=== PATIENT | male | born 1940 ===

== ENCOUNTER → 2024-04-04 13:30 | Outpatient (REF) | payer MEDICARE, OTHER, SELFPAY | LOC: RAD 13:30 | PROVIDERS: ATTENDING PHYSICIAN Internal Medicine Cardiovascular Disease; FAMILY PHYSICIAN Family Medicine | DX: I65.23 Occlusion and stenosis of bilateral carotid arteries (principal) | CPT/HCPCS: 93880 ==

== ENCOUNTER 2024-09-26 14:46 | Inpatient (IN) | payer MEDICARE, OTHER, SELFPAY ==
[2024-09-26] VITALS (15 sets, daily range): BP systolic 123–190; BP diastolic 59–97; PULSE 77; BMI 30.8; BMI 27.6
--- NOTE | 2024-09-26 06:52 | ED.GENMED ---
History of Present Illness
General
Chief Complaint: Fall
Source: patient and ambulance crew
Exam Limitations: none
Time Seen by Provider: 09/26/24 06:43
Nursing documentation reviewed up to this point in time: agreed with
History of Present Illness
History of Present Illness:
84-year-old male with a past medical history of hypertension, hyperlipidemia, diabetes who presents to the emergency room from home where he lives with his and son; presents via EMS for evaluation after fall, also complaining of feeling
'unwell.' Patient reports that he started feeling 'not good' yesterday. He says that he has been having increased urinary frequency, has been feeling very weak and tired. He says that he has had some nausea. He says he is having some mild
abdominal pains. He says that last night he had a low-grade fever. He says that he slept in his lounge chair last night and this morning when he was trying to get up to go to the bathroom he was too weak to stand that he fell out of the lounge
chair. He is not sure whether he hit his head (does have a minor abrasion to the forehead). Denies loss of consciousness. He says his son called EMS to bring her to the hospital. He denies any serious injuries from the fall�denies headache, neck
pain; he does have chronic back pain he says no worse than usual since the fall. Denies any pain in his extremities. Denies being on blood thinners. Of note patient says that he has been on antibiotics for outpatient treatment of left lower
extremity cellulitis�he says he started antibiotics in August, initial course was not effective and so he started on another course recently. He cannot recall the names of the antibiotics.
Review of Systems
Review of Systems
All Other Systems: ROS reviewed and negative except as documented in HPI and ROS
Constitutional: Reports fever, fatigue and chills
EENT: Denies sore throat or runny nose
Respiratory: Denies cough or trouble breathing
Cardiac: Denies chest pain or palpitations
ABD/GI: Reports abdominal pain, nausea and vomiting; Denies diarrhea
: Reports frequency; Denies dysuria or flank pain
Musculoskeletal: Reports back pain (Chronic unchanged); Denies neck pain
Skin: Reports other (Redness left lower leg)
Neurological: Denies dizzy or headache
Phy Exam
Physical Exam
Physical Exam:
General: Awake, alert, oriented x3; no acute distress
Head: Normocephalic, minor abrasion to the forehead
Eyes: Conjunctiva normal, EOMI, pupils equal round and reactive to light bilaterally
Throat: Airway intact, slightly dry mucous membranes
Neck: Trachea midline, no cervical spine tenderness
Back: No signs of trauma to the back or flank, no tenderness in the thoracic or lumbar spine
Lungs: Clear to auscultation bilaterally, no wheezing, rales, rhonchi
Heart: Regular rate and rhythm, systolic murmur
Abd: Soft, non distended, mild lower abdominal tenderness, no peritoneal signs, no masses
Neuro: No gross deficits
Skin: Venous stasis changes in the lower extremities, erythema anterior left lower leg, very minor superficial wound anterior shepherd
Extremities: Trace edema with venous stasis changes and skin changes as above; atraumatic, no tenderness, moves all extremities through comfortable range of motion without pain
Scores
Heart Failure Risk
Heart Failure Risk Score: Not Applicable
Heart Score for Chest Pain Patients
STEMI patient?: Not applicable
Withdrawal Assessment of Alcohol
Withdrawal Assessment Completed?: Not applicable
Course
Orders/Labs/Results
Orders:
Orders
09/26/24 06:51
Electrocardiogram (*1) Urgent
Reason for Study: Fatigue / Weakness
CT Cervical Spine W/o Iv Contr Urgent
Comment:
Reason For Exam: unwitnessed fall, frontal abrasion, N/V
CT Head W/o Iv Contrast Urgent
Comment:
Reason For Exam: unwitnessed fall, frontal abrasion, N/V
EKG- Treatment ONCE
CR Chest - 2 Views Urgent
Comment:
Reason For Exam: weakness, eval for pna
09/26/24 06:54
CT Abd/pelvis W Iv Cont Urgent
Comment:
Reason For Exam: abd pain, N/V, fever
COVID-19 Antigen Urgent
Source: Nasal Swab
CPK [Creatine Phosphokinase] Urgent
Complete Blood Count/With Diff Urgent
Comprehensive Metabolic Panel Urgent
Lipase Urgent
Influenza A+B Rapid Molecular Urgent
JEZ Source: Nasal Swab
Specimen Description:
09/26/24 09:35
Pantoprazole [Protonix IV] 40 mg IV NOW STA
09/26/24 09:52
Pt Eval And Treat Urgent
Activity Level: Ambulate
09/26/24 09:53
0.9% Sodium Chloride 1000 ml [Nss] 1,000 ml IV BOLUS
09/26/24 10:18
Urinalysis Reflex To Culture Urgent
Date Specimen was Collected: 09/26/24
Time Specimen was Collected: 10:17
Urine Microscopic Reflex Cult Urgent
Abnormal Lab Results
09/26/24 09/26/24 09/26/24
06:54 06:55 10:18
Hct 38.6 L %
(39.0-52.0)
Absolute Neuts (auto) 6.6 H 10^3/uL
(1.4-6.5)
Absolute Lymphs (auto) 0.2 L 10^3/uL
(1.2-3.4)
Immature Gran % 0.6 H %
(0-0.5)
Neutrophils % 93.1 H %
(42.2-75.2)
Lymphocytes % 3.3 L %
(20.5-51.1)
Carbon Dioxide 20 L mmol/L
(22-30)
Glucose 269 H mg/dl
(70-99)
Total Bilirubin 1.7 H mg/dl
(0.2-1.3)
Lipase 22 L U/L
(23-300)
Urine Ketones 1+ A
(Negative)
Ur Occult Blood Reflex 2+ A
(Negative)
Urine Glucose 3+ A
(Negative)
POC Glucose 248 H mg/dl
(70-99)
09/26/24 06:54
09/26/24 06:54
Vital Signs
Initial and Last Documented VS:
Initial Vital Signs
Pulse Resp BP Pulse Ox
75 16 158/87 94
09/26/24 06:44 09/26/24 06:44 09/26/24 06:44 09/26/24 06:44
Last Documented Vital Signs
Temp Pulse Resp BP Pulse Ox
37.1 C 70 18 170/72 96
09/26/24 09:56 09/26/24 09:45 09/26/24 09:45 09/26/24 10:00 09/26/24 09:45
MDM/Problems Addressed
Differential Diagnosis Includes:
Malaise/vomiting/abdominal pain: DKA, UTI, diverticulitis/other intra-abdominal infection, gastritis, medication reaction, viral syndrome
MDM/Problems Addressed:
84-year-old male presents to the emergency room for evaluation after fall is also been feeling unwell since yesterday; symptoms occurring in the setting of recent treatment for cellulitis as an outpatient. Hypertensive but otherwise normal vitals.
Physical exam as above. Will place an IV send labs including a CBC and a CMP, lipase; check urinalysis. Check swabs for COVID and flu. Check an EKG. Will check CT head and cervical spine after fall with apparent head strike. Will check CT
abdomen pelvis. Check chest x-ray. Will provide some fluids and antiemetic. Will monitor and reassess after the above.
Labs reviewed: CBC and CMP significant for hyperglycemia 269 otherwise unremarkable. COVID and flu negative. CT head and cervical spine shows right frontal hematoma but no acute intracranial pathology and no cervical spine injury. Chest x-ray
shows no acute pathology. CT abdomen pelvis negative for any acute pathology. Urinalysis is pending. My suspicion is that cellulitis has been driving up blood sugars resulting in increased urinary frequency and dehydration. Infection itself
likely also contributing to his weakness. Suspect antibiotics is causing worsening GI upset�family is at bedside now and confirmed that he had been on Augmentin for a week and then a few days ago started Bactrim because cellulitis had improved but
not resolved. Spoke to the patient and family offered admission for treatment with antibiotics in the hospital for his cellulitis given continued redness despite long course of outpatient antibiotics�patient is somewhat hesitant to be admitted but
family is very concerned about cellulitis and his functional status�he has not been able to even stand without significant assistance according to his . Will provide some additional fluids and have PT evaluate and reassess disposition.
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 His is very concerned about his current degree of weakness and functional
status. Think this is multifactorial likely related to infection with acute cellulitis, dehydration secondary to hyperglycemia. Will plan to admit for IV antibiotics given continued cellulitis and worsening weakness despite prolonged course of
outpatient antibiotics. Case discussed with hospitalist.
Chronic conditions affecting care:
Diabetes
Acute Exacerbation and/or Progression of Chronic Illness:
Acutely hypertensive with no signs or symptoms of hypertensive emergency no indication for emergent antihypertensive treatment
Acute Exacerbation and/or Progression of Chronic Illness: HTN
*Radiology
Radiology exam reviewed: radiology read reviewed
*Pulse Oximetry
Patient hypoxic: no
*Critical Care Note
Total Time (30-74mins, 75-104mins- exclusive of procedures): Not Applicable
Data Reviewed
Review of Other/Old Records Reveals: Labs and Records
Source: patient, records and ambulance crew
Patient Management
Social determinants of health affecting care: Living situation
Discussion with other providers: Hospitalist (Discussed with hospitalist) and Other (Discussed with physical therapist)
Escalation/DeEscalation of care consider admission/obs:
Admission indicated
ED Attending Note
-
Portions of this chart may have been created with voice recognition software.� Occasional wrong word or��sound alike� substitutions may have occurred due to the inherent limitations of voice recognition software.
Discharge Plan
Departure
Patient Disposition: Admit
Date of Disposition: 09/26/24
Time of Disposition: 11:05
Admit to doctor: Alex
Presentation/result/management discussed w/ accepting MD/DO: Hospitalist
Discharge Problem:
Cellulitis, Weakness, Hyperglycemia, Acute dehydration
Prescriptions:
No Action
atorvastatin 20 mg Tablet
20 mg PO DAILY
glipizide 10 mg Tablet
10 mg PO DAILY
omeprazole 40 mg Capsule,Delayed Release(Dr/Ec)
40 mg PO DAILY
metformin 1,000 mg Tablet
1,000 mg PO BID
lisinopril-hydrochlorothiazide 10-12.5 mg Tablet
1 tab PO DAILY
Extra Strength Sinus Relief
1 spray inhalation .DAILY-BID
Nadeau Q Plus Maxiumum
1 cap PO DAILY
Probiotic
1 cap PO DAILY
Tums
2 tab PO PRN PRN (Reason: GAS)
Vitamin C 1,000 MG
1,000 mg PO PRN PRN (Reason: vitamin)
Referrals:
UNKNOWN - PT DOES,NOT KNOW [Family Provider] -
Interventions
Interventions:
*Risk Screen - Suicide Last Done: 09/26/24 06:44
*General Assessment Last Done: 09/26/24 06:44
*Neglect/Abuse Screening Last Done: 09/26/24 06:44
ED- Fall Risk Assessment Last Done: 09/26/24 06:49
*ED COVID-19 Vaccine History Last Done: 09/26/24 06:44
ED-Musculoskeletal Assessment Last Done: 09/26/24 08:10
ED- Neurological Assessment Last Done: 09/26/24 08:10
Discharge Date and Time
Print Language: KYRGYZ
[2024-09-26 06:57] LABS: Glucose - Point of Care 248 mg/dl (70-99)
[2024-09-26 07:06] LABS: % Basophils 1.1 % (0-2); % Eosinophils 0.1 % (0-6); % Immature Granulocytes 0.6 % (0-0.5); % Lymphocytes 3.3 % (20.5-51.1); % Monocytes 1.8 % (1.7-9.3); % Neutrophils 93.1 % (42.2-75.2); Absolute Basophils 0.1 10^3/uL (0-0.2); Absolute Lymphocytes 0.2 10^3/uL (1.2-3.4); Absolute Monocytes 0.1 10^3/uL (0.1-0.6); Absolute Neutrophils 6.6 10^3/uL (1.4-6.5); Hematocrit 38.6 % (39.0-52.0); Hemoglobin 13.6 g/dL (13.0-18.0); Mean Corp Hgb Conc. 35.2 g/dL (33.0-37.0); Mean Corpuscular Hgb 28.8 pg (27.0-31.0); Mean Corpuscular Volume 81.6 fL (80.0-94.0); Mean Platelet Volume 9.8 fL (7.4-10.4); Nucleated Red Blood Cells % 0 % (-); Platelet Count 204 10^3/uL (130-400); Red Blood Cell Count 4.73 10^6/uL (4.70-6.10); Red Cell Dist. Width 12.5 % (11.5-14.5)
[2024-09-26 07:26] LABS: ALT (SGPT) 22 U/L (0-50); AST (SGOT) 33 U/L (17-59); Albumin 4.2 g/dl (3.5-5.0); Alkaline Phosphatase 112 U/L (38-126); Blood Urea Nitrogen 17 mg/dl (9-20); Calcium 9.5 mg/dl (8.4-10.2); Carbon Dioxide 20 mmol/L (22-30); Chloride 99 mmol/L (98-107); Creatine Phosphokinase 137 U/L (55-170); Estimated Creatinine Clearance 90 ml/min; Glucose 269 mg/dl (70-99); Lipase 22 U/L (23-300); Sodium 136 mmol/L (135-145); Total Bilirubin 1.7 mg/dl (0.2-1.3); Total Protein 7.1 g/dl (6.3-8.2); eGFR > 60.00
[2024-09-26 07:42] LABS: COVID-19 Antigen Negative (Negative)
[2024-09-26] MEDS: PROTONIX IV 40 MG IV (10:10)
[2024-09-26] MEDS: NSS 1000 IV ×2 (10:10→16:27)
[2024-09-26 10:32] LABS: Urine Albumin Trace (Neg - Trace); Urine Bilirubin Negative (Negative); Urine Character Clear (Clear); Urine Color Straw; Urine Glucose 3+ (Negative); Urine Ketone 1+ (Negative); Urine Leukocyte Negative (Negative); Urine Nitrite Negative (Negative); Urine Occult Blood 2+ (Negative); Urine Specific Gravity 1.005 (<1.030); Urine Urobilinogen Negative (Neg - 1+)
[2024-09-26 11:03] LABS: Urine Bacteria Few (Negative)
[2024-09-26 11:04] LABS: Urine Red Blood Cell 0-2 /HPF (0-2); Urine White Cell 0-2 /HPF (0-5)
--- NOTE | 2024-09-26 11:27 | HPS.HSE ---
Family Physician
-
Family Physician: NOT KNOW UNKNOWN - PT DOES
Chief Complaint
-
General Malaise
History of Present Illness
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 Patient had slept in his lounge chair night prior
then had a fall when he tried to get up in the morning. Denied Loss of Consciousness. Prior to fall, for the past week or so patient has been on oral abx to treat left Lower ext cellulitis. Patient notes some improvement in erythema since onset
though not resolved. ED eval significant for fever 103 with tachypnea suggestive possible sepsis. Blood pressure stable. No significant Lactic acidosis of leukocytosis noted. Mild hyperglycemia noted 200s in labwork. Patient also noted
intermittent abd pain nausea treated with Zofran in ED. Reports history chronic constipation alternating with diarrhea.
Medical History
Past Medical History
Past Medical History: Reports Other (as above)
Past Surgical History: Reports Other (as above)
Social History
Tobacco: Non-smoker
Alcohol: None
Drug: None
Personal:
Living: With Family
Family History
Family History: Not pertinent (reviewed)
Allergies / Home Medications
Allergies reflects when Allergies were last updated in Back[facility].
Home Medications with original date entered in BackTrack
Allergy/Medication List:
Allergies
Allergy/AdvReac Type Severity Reaction Status Date / Time
No Known Allergies Allergy Verified 09/26/24 06:49
Home Medications
atorvastatin 20 mg tablet 20 mg PO DAILY 06/16/23
glipizide 10 mg tablet 10 mg PO DAILY 06/16/23
metformin 1,000 mg tablet 1,000 mg PO BID 06/16/23
omeprazole 40 mg capsule,delayed release 40 mg PO DAILY 06/16/23
amlodipine 2.5 mg tablet (Norvasc) 2.5 mg PO DAILY 09/26/24
amoxicillin 875 mg-potassium clavulanate 125 mg tablet 1 tab PO BID 09/26/24
calcium carbonate (Tums) 600 mg PO TIDPRN PRN gerd 09/26/24
ibuprofen 200 mg tablet (Advil) 200 mg PO BIDPRN PRN mild pain 09/26/24
lisinopril 20 mg tablet 20 mg PO DAILY 09/26/24
olive leaf extract 250 mg capsule 250 mg PO DAILY 09/26/24
omega-3 fatty acids 1,000 mg PO DAILY 09/26/24
sulfamethoxazole 800 mg-trimethoprim 160 mg tablet (Bactrim DS) 1 tab PO BID 09/26/24
Review of Systems
-
A 12 point ROS was completed and negative except as noted: Yes
Constitutional: Reports Other (as below)
Physical Exam
Vital Signs
Vital Signs
Temp Pulse Resp BP Pulse Ox
98.8 F 70 18 170/72 96
09/26/24 09:56 09/26/24 09:45 09/26/24 09:45 09/26/24 10:00 09/26/24 09:45
Physical Exam
General: Other (as below)
Laboratory Results
-
09/26/24 06:54
09/26/24 06:54
Laboratory Results
Total Bilirubin 1.7 mg/dl (0.2-1.3) H 09/26/24 06:54
AST 33 U/L (17-59) 09/26/24 06:54
ALT 22 U/L (0-50) 09/26/24 06:54
Alkaline Phosphatase 112 U/L (38-126) 09/26/24 06:54
Lipase 22 U/L (23-300) L 09/26/24 06:54
Impression/Plan
-
ROS
General: reports fever general malaise/weakness
Neuro: Denies seizure shaking loss of consciousness dizziness vertigo
Psych: denies depression hallucinations confusion manic episodes
Endocrine: reports polyuria polydipsia denies heat/cold intolerance
HEENT: Denies blindness visual disturbances epistaxis
Pulmonary: denies coughing hemoptysis sneezing sob dyspnea on exertion
Cardiovascular: denies chest pain palpitations leg swelling
Hematology: denies signs symptoms of anemia easy bruising/bleeding
Gastrointestinal: denies nausea vomiting diarrhea constipation hematemesis hematochezia melena
Genito-Urinary: denies retention incontinence dysuria
Musculoskeletal: reports chronic back pain
Dermatology: reports lower ext erythema Lt>Rt
Physical Exam
General: No pallor, cyanosis, or jaundice. Obesity
HEENT: Throat clear. PERRLA Normocephalic atraumatic Hard of Hearing
NECK: Supple. No JVD Carotid Bruits
RESPIRATORY: Lungs clear to auscultation. No crackles wheezes stridor
CVS: S1, S2 normal. RRR. No murmur, rub or gallop.
ABDOMEN: Soft, non-tender. seems distended vs obesity habitus. BS present. Reducible hernia
EXTREMITIES: Lower ext erythema Left>right
POLITICAL ANALYST: AOx3
IMPRESSION:
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 Patient had slept in his
lounge chair night prior then had a fall when he tried to get up in the morning. Denied Loss of Consciousness. Prior to fall, for the past week or so patient has been on oral abx to treat left Lower ext cellulitis. Patient notes some improvement
in erythema since onset though not resolved. ED eval significant for fever 103 with tachypnea suggestive possible sepsis. Blood pressure stable. No significant Lactic acidosis of leukocytosis noted. Mild hyperglycemia noted 200s in labwork.
Patient also noted intermittent abd pain nausea treated with Zofran in ED. Reports history chronic constipation alternating with diarrhea.
PLAN:
Left Lower Ext Cellulitis failed outpt treatment
Possible Sepsis Fever and tachypnea, no lactic acidosis, hypotension, or leukocytosis
-Tele admit
-COVID/Flu negative
-CXR appreciated no acute abn's
-Cont empiric Cefazolin
-follow up blood cultures
-ID eval requested
-Tylenol prn fever
Fall/physical deconditioning d/t acute illness as above
PT/OT appreciated SNF vs Home PT
maintain fall precautions
CT Head appreciated no acute intracranial abn's, small right frontal scalp hematoma noted.
Cervical CT appreciated no acute abn's, multilevel degenerative disc disease noted.
HTN HLD
-cont home amlodipine Lisinopril with holding parameters
-cont statin
Intermittent Abd Pain Nausea
Possibly d/t constipation
-monitor bowel movements
-prn zofran
-laxatives as needed for now, will consider scheduled depending on clinical progress
-CT abd/pelvis appreciate no acute abn's, hepatomegaly and fatty infiltration, small hiatal hernia, small umbilical hernia
Uncontrolled DM polydipsia polyuria possibly exacerbated by underlying infection
-received IVF bolus in ED, cont IVF maintenance pending improvement in oral intake
-hold home Glipizide
-cont home Metformin
-low dose sliding scale
-Updated A1c appreciated 7.9
-Carb controlled Diet
GERD
-cont PPI
Chronic Back Pain
-cont home prn Ibuprofen
-PT/OT
DVT ppx Lovenox
Full Code as per pt
I spent a total of 75 minutes with the patient or on the floor. More than 50% of this time involved counseling and coordination of care.
[2024-09-26] MEDS: ANCEF 10 IV ×2 (11:33→19:55)
[2024-09-26] MEDS: TYLENOL 1000 MG PO (11:51)
[2024-09-26] MEDS: ZOFRAN 4 MG IV (11:51)
[2024-09-26 13:57] LABS: Glycohemoglobin (HgbA1c) 7.9 % (4.0-5.6)
[2024-09-26 13:58] LABS: Lactic Acid 1.5 mmol/L (0.7-2.0)
[2024-09-26 15:42] LABS: B-Hydroxybutyrate 0.75 mmol/L (0.02-0.27)
[2024-09-26 16:31] LABS: Glucose - Point of Care 207 mg/dl (70-99)
[2024-09-26] MEDS: NORVASC 2.5 MG PO (16:59)
[2024-09-26] MEDS: NOVOLOG FLEXPEN-LOW RESISTANCE 2 UNITS SC (17:01)
[2024-09-26] MEDS: GLUCOPHAGE 1000 MG PO (17:03)
[2024-09-26] MEDS: LOVENOX 40 MG SC (17:05)
[2024-09-26] MEDS: TYLENOL 650 MG PO (19:55)
[2024-09-26 21:14] LABS: Glucose - Point of Care 214 mg/dl (70-99)
[2024-09-27] VITALS (7 sets, daily range): BP systolic 120–157; BP diastolic 68–90; PULSE 64; O2SAT 95
[2024-09-27] MEDS: NSS 1000 IV ×2 (02:05→11:37)
[2024-09-27] MEDS: ANCEF 10 IV ×2 (03:39→12:16)
[2024-09-27 07:59] LABS: Glucose - Point of Care 155 mg/dl (70-99)
--- NOTE | 2024-09-27 08:18 | W.PN.HOSP.TC ---
Today's Communication/Plan
-
abx as per ID
PT/OT
glycemic control
Glipizide resumed
Assessment / Plan
Assessment / Plan
Physical Exam
General: No pallor, cyanosis, or jaundice. Obesity
HEENT: Throat clear. PERRLA Normocephalic atraumatic Hard of Hearing
NECK: Supple. No JVD Carotid Bruits
RESPIRATORY: Lungs clear to auscultation. No crackles wheezes stridor
CVS: S1, S2 normal. RRR. No murmur, rub or gallop.
ABDOMEN: Soft, non-tender. seems distended vs obesity habitus. BS present. Reducible hernia
EXTREMITIES: Lower ext erythema Left>right
BEEF SKINNER: AOx3
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 Patient had slept in his
lounge chair night prior then had a fall when he tried to get up in the morning. Denied Loss of Consciousness. Prior to fall, for the past week or so patient has been on oral abx to treat left Lower ext cellulitis. Patient notes some improvement
in erythema since onset though not resolved. ED eval significant for fever 103 with tachypnea suggestive possible sepsis. Blood pressure stable. No significant Lactic acidosis of leukocytosis noted. Mild hyperglycemia noted 200s in labwork.
Patient also noted intermittent abd pain nausea treated with Zofran in ED. Reports history chronic constipation alternating with diarrhea.
PLAN:
Left Lower Ext Cellulitis failed outpt treatment
Possible Sepsis Fever and tachypnea, no lactic acidosis, hypotension, or leukocytosis
-Tele admit
-COVID/Flu negative
-CXR appreciated no acute abn's
-follow up blood cultures
-ID eval appreciated empiric Cefazolin converted to Keflex
-Tylenol prn fever
Fall/physical deconditioning d/t acute illness as above
PT/OT appreciated SNF vs Home PT
maintain fall precautions
CT Head appreciated no acute intracranial abn's, small right frontal scalp hematoma noted.
Cervical CT appreciated no acute abn's, multilevel degenerative disc disease noted.
HTN HLD
-cont home amlodipine Lisinopril with holding parameters
-cont statin
Intermittent Abd Pain Nausea
Possibly d/t constipation
-monitor bowel movements
-prn zofran
-laxatives as needed for now, will consider scheduled depending on clinical progress
-CT abd/pelvis appreciate no acute abn's, hepatomegaly and fatty infiltration, small hiatal hernia, small umbilical hernia
Uncontrolled DM polydipsia polyuria possibly exacerbated by underlying infection
-received IVF bolus in ED, cont IVF maintenance pending improvement in oral intake
-Glipizide resumed
-cont home Metformin
-low dose sliding scale
-Updated A1c appreciated 7.9
-Carb controlled Diet
GERD
-cont PPI
Chronic Back Pain
-cont home prn Ibuprofen
-PT/OT appreciated home with home services
DVT ppx Lovenox
Full Code
Discussed with patient and patient's Radha
I spent a total of 50 minutes with the patient or on the floor. More than 50% of this time involved counseling and coordination of care.
Anticipated Discharge: 24 - 48 hours
Subjective/Interval History
-
Date of Service: September 27, 2024
No acute distress sitting up comfortably in chair. Overall appears symptomatically improved.
Objective Data
-
Labs:
Laboratory Results
09/27/24
07:23
WBC Pending
Hgb Pending
Hct Pending
Plt Count Pending
Sodium Pending
Potassium Pending
Chloride Pending
Carbon Dioxide Pending
BUN Pending
Creatinine Pending
Glucose Pending
Calcium Pending
Vital Signs:
Vital Signs
Temp Pulse Resp BP Pulse Ox
99.2 F 66 14 162/69 91
09/27/24 07:26 09/27/24 07:26 09/27/24 07:26 09/27/24 07:26 09/27/24 07:26
I&O
09/26/24 09/27/24 09/28/24
06:59 06:59 06:59
Intake Total 680 / 680
Output Total 1500 / 1500
Balance -820 / -820
[2024-09-27 08:35] LABS: Blood Urea Nitrogen 18 mg/dl (9-20); Calcium 8.5 mg/dl (8.4-10.2); Carbon Dioxide 26 mmol/L (22-30); Chloride 103 mmol/L (98-107); Estimated Creatinine Clearance 85 ml/min; Glucose 173 mg/dl (70-99); Magnesium 1.8 mg/dl (1.6-2.3); Phosphorus 2.6 mg/dl (2.5-4.5); Sodium 140 mmol/L (135-145); eGFR > 60.00
[2024-09-27] MEDS: ZESTRIL 20 MG PO (08:57)
[2024-09-27] MEDS: PROTONIX 40 MG PO (08:57)
[2024-09-27] MEDS: LIPITOR 20 MG PO (08:57)
[2024-09-27] MEDS: NORVASC 2.5 MG PO (08:57)
[2024-09-27] MEDS: NOVOLOG FLEXPEN-LOW RESISTANCE 1 UNITS SC (08:57)
[2024-09-27] MEDS: GLUCOPHAGE 1000 MG PO ×2 (08:57→17:11)
[2024-09-27 09:12] LABS: Hematocrit 37.3 % (39.0-52.0); Hemoglobin 13.2 g/dL (13.0-18.0); Mean Corp Hgb Conc. 35.4 g/dL (33.0-37.0); Mean Corpuscular Hgb 29.3 pg (27.0-31.0); Mean Corpuscular Volume 82.9 fL (80.0-94.0); Red Cell Dist. Width 12.7 % (11.5-14.5); White Blood Cell Count 3.7 10^3/uL (4.8-10.8)
[2024-09-27 10:42] LABS: Mean Platelet Volume 10.1 fL (7.4-10.4); Platelet Count 162 10^3/uL (130-400)
[2024-09-27 12:03] LABS: Glucose - Point of Care 231 mg/dl (70-99)
[2024-09-27] MEDS: OCEAN, SALINE MIST 1 SPRAYS NASAL ×3 (12:16→22:08)
[2024-09-27] MEDS: NOVOLOG FLEXPEN-LOW RESISTANCE 2 UNITS SC ×2 (12:16→17:11)
--- NOTE | 2024-09-27 14:02 | CON.ID ---
Addendum entered and electronically signed by Navjot Sterling DO 09/27/24 16:10:
I personally performed a history and physical exam of the patient and discussed management with the resident. I reviewed the resident's note and agree with the documented findings and plan of care HPI/CC.
Gen : Awake and alert. Nontoxic in appearance, in no acute distress
HEENT: No scleral icterus. No conjunctival hemorrhages.
Heart: Regular, positive S1-S2, negative S3-S4
Lungs: Clear, nonlabored, no wheezes, rhonchi or rales
Abdomen: Soft and nontender.
Extremities: Bilateral mild venous stasis changes noted. Small wound anterior portion of distal left leg. Mild periwound erythema. No significant warmth or overall tenderness of the leg.
Skin: Exceedingly dry. Diffuse mild scaling noted.
Imp/Recs:
Overall degree of cellulitis is minimal at this time.
Continue with antibiotic coverage, but can transition to oral Keflex for an additional 5 days.
Patient and family advised that ongoing moisturizing therapy to the lower extremities is warranted. I have suggested the use of Eucerin cream. If significant dryness and scaling persist, patient may seek out an evaluation by Dermatology.
Continue with local care to the left leg wound.
Original Note:
Consultation
-
Requesting Provider:
Performing Provider: /
Chief Complaint / Past History
History of Present Illness
This is an 84-year-old male patient with past medical history of NIDDM, GERD, HTN who presented to the ER with after a fall at home and left leg pain. Yesterday night the patient reports sleeping in a lounge chair which he does very often and when
he had woken up and tried to go to the bathroom he suffered a fall. He suffered a small wound on his forehead but denies any loss of consciousness, headache or vision changes. He has also been dealing with cellulitis of his left lower extremity.
In the last week of August he had noticed his left leg had become mildly red and swollen. He usually has chronically dry skin and states that he 'picked' at his leg prior to this. This had prompted him to see his PCP who had given him Augmentin
but this did not provide the patient with any relief and when he had visited his PCP again he was started on Bactrim as well. He states that after taking a dose of Bactrim he started to go 'downhill' and felt very nauseous. With his ongoing
condition of his lower left extremity and fall, this had prompted him to present to the hospital.
Past History
Past Medical History: GERD, HTN, Hypercholesterolemia, NIDDM and Other (Hx of vocal cord carcinoma s/p radiation)
Past Surgical History: Other
Allergy History:
No Known Allergies Allergy (Verified 09/26/24 06:49)
Social History
Tobacco: Non-Smoker
Alcohol: None
Drug: None
Personal:
Living: With Family
Family History
Family History: Not Pertinent
Review of Systems
Vital Signs
Temp Pulse Resp BP Pulse Ox
98.4 F 67 13 120/68 94
09/27/24 11:00 09/27/24 11:00 09/27/24 11:00 09/27/24 11:00 09/27/24 11:00
Physical Exam
Lab / Diagnostic Study Results
09/27/24 07:23
09/27/24 07:23
Abs Immat Gran (auto) 0.0 10^3/uL (0-0.05) 09/26/24 06:54
Absolute Neuts (auto) 6.6 10^3/uL (1.4-6.5) H 09/26/24 06:54
Absolute Lymphs (auto) 0.2 10^3/uL (1.2-3.4) L 09/26/24 06:54
Absolute Monos (auto) 0.1 10^3/uL (0.1-0.6) 09/26/24 06:54
Absolute Basos (auto) 0.1 10^3/uL (0-0.2) 09/26/24 06:54
Immature Gran % 0.6 % (0-0.5) H 09/26/24 06:54
Neutrophils % 93.1 % (42.2-75.2) H 09/26/24 06:54
Lymphocytes % 3.3 % (20.5-51.1) L 09/26/24 06:54
Monocytes % 1.8 % (1.7-9.3) 09/26/24 06:54
Eosinophils % 0.1 % (0-6) 09/26/24 06:54
Basophils % 1.1 % (0-2) 09/26/24 06:54
Lactic Acid 1.5 mmol/L (0.7-2.0) 09/26/24 13:15
Ur Squamous Epith Cells 3-5 /LPF (Few) 09/26/24 10:18
Microbiology Results
Micro:
09/26/24 13:15 Blood Culture - Preliminary
Blood/Venous No Growth in 24 hours- Final report to follow
09/26/24 13:15 Blood Culture - Pending
Blood/Venous
09/26/24 06:54 Influenza Types A & B (SYD) - Final
Nasal Swab Negative for Influenza A & B, NAAT
Negative results must be combined with clinical observations
and patient history.
Nucleic Acid Amplification test (NAAT)performed on the
[employer] platform.
Assessment / Plan
Left Lower Ext Cellulitis
Chronic Venous Insufficiency/Stasis
NIDDM - HbA1c 7.9
HTN
Hx of vocal cord carcinoma s/p radiation
Recommendations:
-Afebrile, WBC not elevated
-CXR: Hypoaerated lungs without consolidation.
-Abd CT: No acute intra-abdominal process identified.
-Discontinue empiric Cefazolin
-Blood cultures: neg
-Cellulitis at this time not largely significant on clinical exam
- Start Keflex 500mg QID for 5 days
--- NOTE | 2024-09-27 15:46 | CM ---
Patient seen at bedside. Patient states that he lives with his in a [place] and has no VN/no DME no past SNF. Patient PCP is Dr. Guerra in [facility] in 113/313. Patient has been going to outpatient therapy for 6 weeks.
Patient plan is home with VN and patient may need a walker. CM will continue to follow for discharge planning needs.
Plan; home with VN vs home no needs. watch for need for walker
[2024-09-27 16:32] LABS: Glucose - Point of Care 213 mg/dl (70-99)
[2024-09-27] MEDS: LOVENOX 40 MG SC (17:11)
[2024-09-27] MEDS: KEFLEX 500 MG PO ×2 (17:11→22:08)
[2024-09-27 21:41] LABS: Glucose - Point of Care 204 mg/dl (70-99)
[2024-09-28 03:12] VITALS: BP 160/83
[2024-09-28 07:15] VITALS: BP 157/79
--- NOTE | 2024-09-28 07:38 | W.PN.HOSP.TC ---
Addendum entered and electronically signed by Cherrie Morgan MD 09/28/24 15:38:
Mild Hypophosphatemia
repleted
Addendum entered and electronically signed by Cherrie Morgan MD 09/28/24 15:36:
Suspect Fever due to viral Upper Respiratory Infection vs Gastroenteritis self-limited
Original Note:
Today's Communication/Plan
-
Discharge
Assessment / Plan
Assessment / Plan
Physical Exam
General: No pallor, cyanosis, or jaundice. Obesity
HEENT: Throat clear. PERRLA Normocephalic atraumatic Hard of Hearing
NECK: Supple. No JVD Carotid Bruits
RESPIRATORY: Lungs clear to auscultation. No crackles wheezes stridor
CVS: S1, S2 normal. RRR. No murmur, rub or gallop.
ABDOMEN: Soft, non-tender. seems distended vs obesity habitus. BS present. Reducible hernia
EXTREMITIES: Lower ext erythema Left>right appears to be improving
SLIP PRESSER: AOx3
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 Patient had slept in his
lounge chair night prior then had a fall when he tried to get up in the morning. Denied Loss of Consciousness. Prior to fall, for the past week or so patient has been on oral abx to treat left Lower ext cellulitis. Patient notes some improvement
in erythema since onset though not resolved. ED eval significant for fever 103 with tachypnea suggestive possible sepsis. Blood pressure stable. No significant Lactic acidosis of leukocytosis noted. Mild hyperglycemia noted 200s in labwork.
Patient also noted intermittent abd pain nausea treated with Zofran in ED. Reports history chronic constipation alternating with diarrhea.
PLAN:
Left Lower Ext Cellulitis failed outpt treatment
Possible Sepsis Fever and tachypnea, no lactic acidosis, hypotension, or leukocytosis
-Tele admit
-suspect fever actually due to self-limiting viral URI complicating picture as oppose to cellulitis (which appeared relatively mild resolving on admission)
-COVID/Flu negative
-CXR appreciated no acute abn's
-follow up blood cultures
-ID eval appreciated empiric Cefazolin converted to Keflex
-no new fever since 09/26
Fall/physical deconditioning d/t acute illness as above
PT/OT home with home services
maintain fall precautions
CT Head appreciated no acute intracranial abn's, small right frontal scalp hematoma noted.
Cervical CT appreciated no acute abn's, multilevel degenerative disc disease noted.
HTN HLD
-cont home amlodipine Lisinopril with holding parameters
-cont statin
Intermittent Abd Pain Nausea
Possibly d/t constipation
-CT abd/pelvis appreciate no acute abn's, hepatomegaly and fatty infiltration, small hiatal hernia, small umbilical hernia
-symptoms since resolved with bowel movement
Uncontrolled DM polydipsia polyuria possibly exacerbated by underlying infection
-received IVF bolus in ED, cont IVF maintenance pending improvement in oral intake
-cont home Metformin Glipizide
-low dose sliding scale
-Updated A1c appreciated 7.9
-Carb controlled Diet
-Glycemic control improved
GERD
-cont PPI
Chronic Back Pain
-cont home prn Ibuprofen
-PT/OT appreciated home with home services
DVT ppx Lovenox
Full Code
Medically stable for discharge home with home services and outpatient follow up recommendations.
Discussed with patient and patient's Radha
I spent a total of 50 minutes with the patient or on the floor. More than 50% of this time involved counseling and coordination of care.
Anticipated Discharge: Today
Subjective/Interval History
-
Date of Service: September 28, 2024
Seen and examined at bedside in no acute distress sitting up comfortably in chair. Continues to report overall improvement in symptoms. Reports feeling well, looking forward to go home. Denies new acute issues at this time.
Objective Data
-
Labs:
Laboratory Results
09/28/24
07:20
WBC Pending
Hgb Pending
Hct Pending
Plt Count Pending
Sodium Pending
Potassium Pending
Chloride Pending
Carbon Dioxide Pending
BUN Pending
Creatinine Pending
Glucose Pending
Calcium Pending
Vital Signs:
Vital Signs
Temp Pulse Resp BP Pulse Ox
97.5 F 53 20 160/83 95
09/28/24 03:12 09/28/24 03:12 09/28/24 03:12 09/28/24 03:12 09/28/24 03:12
I&O
09/27/24 09/28/24 09/29/24
06:59 06:59 06:59
Intake Total 680 / 680 980 / 980
Output Total 1500 / 1500 1550 / 1550
Balance -820 / -820 -570 / -570
[2024-09-28 08:07] LABS: Glucose - Point of Care 154 mg/dl (70-99)
[2024-09-28] MEDS: OCEAN, SALINE MIST 1 SPRAYS NASAL (08:32)
[2024-09-28] MEDS: KEFLEX 500 MG PO ×2 (08:32→13:06)
[2024-09-28] MEDS: PROTONIX 40 MG PO (08:32)
[2024-09-28] MEDS: GLUCOTROL 10 MG PO (08:32)
[2024-09-28] MEDS: NORVASC 2.5 MG PO (08:32)
[2024-09-28] MEDS: ZESTRIL 20 MG PO (08:32)
[2024-09-28] MEDS: NOVOLOG FLEXPEN-LOW RESISTANCE 1 UNITS SC ×2 (08:32→13:06)
[2024-09-28] MEDS: GLUCOPHAGE 1000 MG PO (08:32)
[2024-09-28] MEDS: LIPITOR 20 MG PO (08:32)
[2024-09-28 08:41] LABS: Hematocrit 37.8 % (39.0-52.0); Hemoglobin 12.9 g/dL (13.0-18.0); Mean Corp Hgb Conc. 34.1 g/dL (33.0-37.0); Mean Corpuscular Hgb 29.2 pg (27.0-31.0); Mean Corpuscular Volume 85.5 fL (80.0-94.0); Mean Platelet Volume 10.2 fL (7.4-10.4); Platelet Count 156 10^3/uL (130-400); Red Blood Cell Count 4.42 10^6/uL (4.70-6.10); Red Cell Dist. Width 12.8 % (11.5-14.5); White Blood Cell Count 2.9 10^3/uL (4.8-10.8)
[2024-09-28 08:55] LABS: Blood Urea Nitrogen 17 mg/dl (9-20); Calcium 8.7 mg/dl (8.4-10.2); Carbon Dioxide 30 mmol/L (22-30); Chloride 100 mmol/L (98-107); Estimated Creatinine Clearance 85 ml/min; Glucose 155 mg/dl (70-99); Phosphorus 2.3 mg/dl (2.5-4.5); Potassium 4.2 mmol/L (3.5-5.1); Sodium 140 mmol/L (135-145); eGFR > 60.00
--- NOTE | 2024-09-28 09:29 | W.PN.ID1 ---
Addendum entered and electronically signed by Navjot tSerling DO 09/28/24 14:39:
I personally saw and evaluated the patient. I reviewed the resident�s note and agree with findings and plan as documented in the resident�s note.
Original Note:
Date of Service
Date of Service: September 28, 2024
Today's Communication
Continue Keflex
Assessment / Plan
Left Lower Ext Cellulitis
Chronic Venous Insufficiency/Stasis
NIDDM - HbA1c 7.9
HTN
Hx of vocal cord carcinoma s/p radiation
Recommendations:
-Afebrile, WBC not elevated
-CXR: Hypoaerated lungs without consolidation.
-Abd CT: No acute intra-abdominal process identified.
-Discontinued empiric Cefazolin
-Blood cultures: neg
-Cellulitis at this time not largely significant on clinical exam
- Continue Keflex 500mg QID for 5 days
-Continue local wound care management and moisturization of lower extremities
Subjective / Review of Systems
Patient feels overall well today and denies any fever or chills.
Review of Systems: No Fever, No Chills, No Nausea and No Vomiting
Vital Signs / Physical Exam
Vital Signs
Vital Signs
Temp Pulse Resp BP Pulse Ox
98.7 F 52 20 157/79 96
09/28/24 07:15 09/28/24 07:15 09/28/24 07:15 09/28/24 07:15 09/28/24 07:15
Physical Exam
Constitutional: No Acute Distress
Head: Normocephalic
Cardiovascular: Regular Rate and S1/S2
Pulmonary: Clear
Gastrointestinal: Soft, Non Tender and Non Distended
Extremities: Other (Small wound anterior portion of distal left leg. Mild periwound erythema. No significant warmth or overall tenderness of the leg)
Skin: Warm and Dry
Neurological: Awake, Alert and Oriented
Objective Data
Lab Data
Lab Results
09/28/24 07:20
09/28/24 07:20
Estimated Creat Clear 85 ml/min 09/28/24 07:20
Lactic Acid 1.5 mmol/L (0.7-2.0) 09/26/24 13:15
Total Bilirubin 1.7 mg/dl (0.2-1.3) H 09/26/24 06:54
AST 33 U/L (17-59) 09/26/24 06:54
ALT 22 U/L (0-50) 09/26/24 06:54
Alkaline Phosphatase 112 U/L (38-126) 09/26/24 06:54
Most recent labs reviewed.
Micro Results:
09/26/24 13:15 Blood Culture - Preliminary
Blood/Venous No Growth in 24 hours- Final report to follow
09/26/24 13:15 Blood Culture - Preliminary
Blood/Venous No Growth in 24 hours- Final report to follow
09/26/24 06:54 Influenza Types A & B (SYD) - Final
Nasal Swab Negative for Influenza A & B, NAAT
Negative results must be combined with clinical observations
and patient history.
Nucleic Acid Amplification test (NAAT)performed on the
[employer] platform.
[2024-09-28 11:39] VITALS: BP 122/71
[2024-09-28 12:33] LABS: Glucose - Point of Care 176 mg/dl (70-99)
[2024-09-28] MEDS: NEUTRA-PHOS POWDER PACKET 250 MG PO (13:06)
[2024-09-28] MEDS: OCEAN, SALINE MIST NASAL (13:06)
--- NOTE | 2024-09-28 14:24 | VNURNOTE ---
Home health liaison called patient's Radha to discuss [facility] services, visit scheduling/frequency, homebound status and pet policy. Radha understands home visits will be 1-2 times a week to assess and teach medical management. Radha aware a
visiting nurse will contact her for start of care within 1-2 days after discharge from . [facility] Referral completed in care port.
--- NOTE | 2024-09-28 14:47 | CM ---
Patient completed IMM and signed form placed on chart. Patient requested [facility] and CM spoke with patient , she is aware of pending discharge and will talk to [facility]. CM will continue to follow for discharge planning needs.
Plan; home with [facility] to follow
--- NOTE | 2024-09-28 15:46 | W.DCSUMMARY ---
Discharge Summary
Discharge Data
Date of Admission: 09/26/24
Date of Discharge: 09/28/24
-
Pending Results: Yes
Additional Pending Results:
official Culture Results
Discharge Plan
-
Patient Disposition: Home with Home Care
Discharge Diagnosis/Procedures: Left Lower Extremity Cellulitis
Suspect Fever due to Viral Upper Respiratory Infection vs Gastroenteritis self-limited (Negative COVID/Flu)
Condition: Fair
Diet: Diabetic, Carb Controlled
Activity: As tolerated
Driving Restrictions: Not until seen by your Dr
Bathing Restrictions: None
Blood Work: Repeat CBC and BMP with primary care provider in 1 week of discharge.
Other Services: PT and OT
Activity Restrictions/Additional Instructions:
Please follow up with primary care provider in 1 week of discharge. Discuss with primary care provider possible benefit Dermatology referral if significant dryness scaling lower extremities persist despite daily moisturizing therapy to lower
extremities (Eucerin cream recommended)
Keflex prescribed for treatment left lower extremity cellulitis, 5 days.
Please take medications as prescribed/recommended and follow up with primary care provider and/or other healthcare provider involved in your care for further adjustments to your medication regimen as necessary.
Referrals:
UNKNOWN - PT DOES,NOT KNOW [Family Provider] -
Prescriptions:
New
cephalexin 500 mg Capsule
500 mg PO QID 5 Days Qty: 20 0RF
Continued
atorvastatin 20 mg Tablet
20 mg PO DAILY
glipizide 10 mg Tablet
10 mg PO DAILY
omeprazole 40 mg Capsule,Delayed Release(Dr/Ec)
40 mg PO DAILY
metformin 1,000 mg Tablet
1,000 mg PO BID
lisinopril 20 mg Tablet
20 mg PO DAILY
amlodipine [Norvasc] 2.5 mg Tablet
2.5 mg PO DAILY
Tums 300 mg (750 mg) Tablet,Chewable
600 mg PO TIDPRN PRN (Reason: gerd)
ibuprofen [Advil] 200 mg Tablet
200 mg PO BIDPRN PRN (Reason: mild pain)
omega-3 fatty acids Capsule
1,000 mg PO DAILY
olive leaf extract 250 mg Capsule
250 mg PO DAILY
Discontinued
sulfamethoxazole-trimethoprim [Bactrim DS] 800-160 mg Tablet
1 tab PO BID
amoxicillin-pot clavulanate [Augmentin] 875-125 mg Tablet
1 tab PO BID
Discharge Orders:
Discharge Patient (As Directed); Ordered 09/28/24
Ordered By: Cherrie Morgan
Discharge Date and Time
Print Language: BELGIAN
[2024-09-28 15:48] VITALS: BP 113/67
== END 2024-09-28 16:55 | disposition home health service (06) | DRG 872 ==
LOC: 4 EAST ACU 14:46
PROVIDERS: ADMITTING PHYSICIAN Internal Medicine; EMERGENCY PHYSICIAN Emergency Medicine; OTHER PHYSICIAN Internal Medicine Infectious Disease
DX: A41.9 Sepsis, unspecified organism (principal); L03.116 Cellulitis of left lower limb; J06.9 Acute upper respiratory infection, unspecified; A08.4 Viral intestinal infection, unspecified; S00.81XA Abrasion of other part of head, initial encounter; E11.65 Type 2 diabetes mellitus with hyperglycemia; E78.00 Pure hypercholesterolemia, unspecified; E86.0 Dehydration; G89.29 Other chronic pain; I10 Essential (primary) hypertension; K21.9 Gastro-esophageal reflux disease without esophagitis; K59.00 Constipation, unspecified; I87.2 Venous insufficiency (chronic) (peripheral); E83.39 Other disorders of phosphorus metabolism; W19.XXXA Unspecified fall, initial encounter; Z79.84 Long term (current) use of oral hypoglycemic drugs; Z85.21 Personal history of malignant neoplasm of larynx; Z92.3 Personal history of irradiation; Z11.52 Encounter for screening for COVID-19
CPT/HCPCS: 70450; 71046; 72125; 74177; 80048; 80053; 81003; 81015; 82010; 82550; 82962; 83036; 83605; 83690; 83735; 84100; 85025; 85027; 87040; 87502; 87811; 93005; 96361; 96374; 96375; 97116; 97166; 99285; Q9967